=== PATIENT | female | born 1940 | race Caucasian/White ===

== ENCOUNTER 2017-04-24 14:51 | Emergency (ER) | payer OTHER ==
[~2017-04-24] VITALS: Ht 160 cm; Wt 85.0 kg
[~2017-04-24 14:51] MED LIST: AMLO-511 PO; ASPI-1198 PO; FLUO-191 PO; HYDR25TA PO; LEVO75TA4 PO; LISI-618 PO; METF500T4 PO; MIRT15 PO
[2017-04-24 15:10] VITALS: BP 144/80
[2017-04-24] MEDS ORDERED: KETOROLAC TROMETHAMINE 60 MG/2 ML VIAL IM ONE (16:00)
== END 2017-04-24 16:40 | disposition home or self-care (01) ==
LOC: EMS 14:52
DX: K04.7 Periapical abscess without sinus (principal); I10 Essential (primary) hypertension; R51 Headache; E11.9 Type 2 diabetes mellitus without complications; E78.00 Pure hypercholesterolemia, unspecified; E03.9 Hypothyroidism, unspecified; Z88.8 Allergy status to other drugs, medicaments and biological substances
CPT/HCPCS: 82962; 96372; 99283; J1885

== ENCOUNTER 2019-01-22 10:41 | Emergency (ER) | payer OTHER ==
[~2019-01-22] VITALS: Ht 160 cm; Wt 77.3 kg
[~2019-01-22 10:41] MED LIST changes: -AMLO-511 PO; +AMLO5TAB9 PO; -METF500T4 PO
[2019-01-22 10:50] VITALS: BP 142/60
[2019-01-22] MEDS ORDERED: METF-960 PO (11:04)
[2019-01-22 11:05] LABS: GLUCOSE,POINT OF CARE 198 MG/DL (70-110)
[2019-01-22 11:14] LABS: APPEARANCE,URINE CLOUDY (CLEAR); BILIRUBIN,URINE NEGATIVE (NEGATIVE); GLUCOSE, URINE (UA) NEGATIVE (NEGATIVE); KETONES,URINE NEGATIVE (NEGATIVE); LEUKOCYTE ESTERASE ,URINE LARGE (NEGATIVE); NITRATE,URINE NEGATIVE (NEGATIVE); OCCULT BLOOD,URINE LARGE (NEGATIVE); PH,URINE 5.5 (5.0-8.0); PROTEIN,URINE NEGATIVE (NEGATIVE); UROBILINOGEN,URINE 0.2 mg/dL (<=1.0)
[2019-01-22 11:23] LABS: BACTERIA,URINE Few /HPF (None Seen); SQUAMOUS EPITHELIAL CELL,UR Few /LPF (None Seen); WBC,URINE >100 /HPF (0-5)
== END 2019-01-22 13:09 | disposition home or self-care (01) ==
LOC: EMS 10:47
DX: N39.0 Urinary tract infection, site not specified (principal); I10 Essential (primary) hypertension; E11.9 Type 2 diabetes mellitus without complications; E78.00 Pure hypercholesterolemia, unspecified; E03.9 Hypothyroidism, unspecified; Z79.899 Other long term (current) drug therapy; Z79.84 Long term (current) use of oral hypoglycemic drugs; Z88.8 Allergy status to other drugs, medicaments and biological substances
CPT/HCPCS: 87086